=== PATIENT | female | born 1970 | race Caucasian/White ===

== ENCOUNTER 2023-03-09 08:47 | Outpatient (CLI) | payer OTHER | END 2023-03-09 08:54 | disposition home or self-care (01) | LOC: TOM 08:47 | PROVIDERS: ATTEND Urology | DX: N20.0 Calculus of kidney (principal) ==

== ENCOUNTER 2023-11-26 07:26 | Outpatient (CLI) | payer OTHER | END 2023-11-26 07:40 | disposition home or self-care (01) | LOC: MAMO-SONO 07:26 | PROVIDERS: ATTEND Obstetrics & Gynecology | DX: N60.21 Fibroadenosis of right breast (principal); N60.22 Fibroadenosis of left breast ==

== ENCOUNTER 2024-05-22 13:43 | Outpatient (CLI) | payer OTHER | END 2024-05-22 14:02 | disposition home or self-care (01) | LOC: TOM 13:43 | DX: N20.0 Calculus of kidney (principal) ==

== ENCOUNTER 2024-06-16 07:09 | Outpatient (CLI) | payer OTHER | END 2024-06-16 07:10 | disposition home or self-care (01) | LOC: RAD 07:09 | PROVIDERS: ATTEND Urology | DX: N20.1 Calculus of ureter (principal) ==

== ENCOUNTER 2024-07-30 07:04 | Outpatient (CLI) | payer OTHER | END 2024-07-30 07:15 | disposition home or self-care (01) | LOC: RAD 07:04 | PROVIDERS: ATTEND Urology | DX: N20.1 Calculus of ureter (principal) ==

== ENCOUNTER 2024-11-28 07:01 | Outpatient (CLI) | payer OTHER | END 2024-11-28 07:04 | disposition home or self-care (01) | LOC: TOM 07:01 | PROVIDERS: ATTEND Surgery | DX: D12.5 Benign neoplasm of sigmoid colon (principal); K57.90 Diverticulosis of intestine, part unspecified, without perforation or abscess without bleeding ==